=== PATIENT | female | born 1970 | race African-American/Black ===

== ENCOUNTER 2018-07-14 19:09 | Emergency (ER) | payer MEDICAID ==
[~2018-07-14] VITALS: Ht 157.5 cm; Wt 144.0 kg
[2018-07-14] MEDS ORDERED: SODIUM CHLORIDE 0.9% 1,000 ML IV ONE (19:45)
[2018-07-14 20:20] LABS: BASOPHILS % 0.7 % (0.0-2.0); EOSINOPHILS % 0.7 % (0.0-5.0); HEMATOCRIT. 39.6 % (36.0-48.0); HEMOGLOBIN. 12.8 g/dL (12.0-16.0); LYMPHOCYTES % 32.1 % (20.0-50.0); MEAN CORPUSCULAR VOLUME 89.4 fL (81.0-99.0); MEAN PLATELET VOLUME 7.8 fl (7.4-10.4); MONOCYTES % 6.2 % (2.0-8.0); NEUTROPHILS % 60.3 % (40.0-76.0); PLATELET 282 x1000/uL (130-400); RED BLOOD CELL COUNT 4.43 mill/uL (4.2-5.4); RED CELL DISTRIBUTION WIDTH 14.7 % (11.6-14.6)
[2018-07-14 20:23] LABS: CHLORIDE 107 mEq/L (98-107)
[2018-07-14 20:28] LABS: ETHANOL BLOOD < 10 mg/dL
[2018-07-14 21:10] LABS: COLOR URINE YELLOW (YELLOW); KETONES URINE NEGATIVE (NEGATIVE); LEUKOCYTE ESTERASE URINE NEGATIVE (NEGATIVE); NITRITE URINE NEGATIVE (NEGATIVE); OCCULT BLOOD URINE NEGATIVE (NEGATIVE); PH URINE 5.5 (4.5-8.0); PROTEIN URINE NEGATIVE (NEGATIVE); SPECIFIC GRAVITY URINE 1.022 (1.005-1.030); UROBILINOGEN URINE 0.2 E.U./dL (0.2-1.0)
[2018-07-14 21:15] LABS: CLARITY URINE CLEAR (CLEAR)
[2018-07-14 21:21] LABS: *AMPHETAMINES SCREEN URINE NEGATIVE (NEGATIVE); *BARBITURATES SCREEN URINE NEGATIVE (NEGATIVE); *BENZODIAZEPINES SCREEN URINE NEGATIVE (NEGATIVE)
[2018-07-14 21:22] LABS: *COCAINE SCREEN URINE NEGATIVE (NEGATIVE); CANNABINOID URINE SCREEN NEGATIVE (NEGATIVE); METHADONE URINE SCREEN NEGATIVE (NEGATIVE); OPIATES URINE SCREEN NEGATIVE (NEGATIVE); PHENCYCLIDINE URINE SCREEN NEGATIVE (NEGATIVE)
[2018-07-14 22:54] VITALS: BP 103/59
== END 2018-07-14 22:56 | disposition home or self-care (01) ==
LOC: ER 19:09
DX: E86.0 Dehydration (principal); R41.82 Altered mental status, unspecified; F32.9 Major depressive disorder, single episode, unspecified; E66.9 Obesity, unspecified; Z68.43 Body mass index [BMI] 50.0-59.9, adult; Z90.49 Acquired absence of other specified parts of digestive tract
CPT/HCPCS: 36415; 70450; 80053; 80305; 80320; 81003; 81025; 82140; 82962; 83605; 83690; 84443; 84484; 85025; 93005; 96360; 96361; 99284; J7030; G0480

== ENCOUNTER 2019-07-05 11:04 | Inpatient (IN) | payer MEDICAID ==
[~2019-07-05] VITALS: Ht 157.5 cm; Wt 142.5 kg
[2019-07-05] MEDS ORDERED: METHYLPREDNISOLONE SOD SUCC 125 MG/2 ML VIAL IV STA (11:58)
[2019-07-05] MEDS ORDERED: IPRATROPIUM BROMIDE (0.02%) 0.5MG/2.5ML NEB HHN STA (11:58)
[2019-07-05] MEDS ORDERED: ALBUTEROL (0.083%) 2.5MG/3ML NEB HHN STA (11:58)
[2019-07-05 12:07] LABS: BASOPHILS % 0.5 % (0.0-2.0); EOSINOPHILS % 0.4 % (0.0-5.0); HEMATOCRIT. 40.9 % (36.0-48.0); HEMOGLOBIN. 13.5 g/dL (12.0-16.0); LYMPHOCYTES % 12.6 % (20.0-50.0); MEAN CORPUSCULAR HEMOGLOBIN 28.8 pg (28.0-32.0); MEAN CORPUSCULAR VOLUME 87.3 fL (81.0-99.0); MEAN PLATELET VOLUME 8.8 fl (7.4-10.4); MONOCYTES % 4.8 % (2.0-8.0); NEUTROPHILS % 81.7 % (40.0-76.0); PLATELET 194 x1000/uL (130-400); RED BLOOD CELL COUNT 4.68 mill/uL (4.2-5.4)
[2019-07-05 12:14] LABS: CHLORIDE 101 mEq/L (98-107)
[2019-07-05 12:18] LABS: BG BASE EXCESS 1.8 mmol/L (-2.0-2.0); BG BILEVEL POS AIRWAY PRESSURE 15/5; BG CARBOXYHEMOGLOBIN 0.9 % (0.5-1.5); BG DEOXYHEMOGLOBIN 4.1 % (0.0-5.0); BG FRACTION INSPIRED OXYGEN 50; BG METHEMOGLOBIN 0.2 % (0.0-1.5); BG OXYGEN SATURATION 95.9 % (92.0-98.5); BG OXYHEMOGLOBIN 94.8 % (94.0-97.0); BG PH 7.366 (7.350-7.450); BG PO2 87.1 mmHg (75.0-100.0); BG SAMPLE SITE RIGHT RADIAL; BG TOTAL HEMOGLOBIN 13.9 g/dL (12.0-18.0); BG VENT MODE MASK - BIPAP; BG VENT RATE 16 set
[2019-07-05] MEDS ORDERED: ASPIRIN 81MG TABLET PO ONE (13:00)
[2019-07-05] MEDS ORDERED: NITROGLYCERIN 0.4MG TABLET SL SL PRN (13:00)
[2019-07-05] MEDS ORDERED: FUROSEMIDE 40MG/4ML VIAL IV ONE (13:00)
[2019-07-05] MEDS ORDERED: ACETAMINOPHEN 325MG TABLET PO PRN (13:30)
[2019-07-05] MEDS ORDERED: IPRATROPIUM/ALBUTEROL 0.5-3(2.5)MG/3ML NEB HHN PRN (13:30)
[2019-07-05] MEDS ORDERED: ONDANSETRON HCL 4MG/2ML INJ IV PRN (13:30)
[2019-07-05] MEDS: IPRATROPIUM/ALBUTEROL 0.5-3(2.5)MG/3ML NEB HHN SCH ×2 (16:46→20:28)
[2019-07-05 22:00] VITALS: BP 106/64
[2019-07-05 22:46] VITALS: BP 99/51
[2019-07-05] MEDS ORDERED: IOHEXOL-350 100 ML BOTTLE ONE (23:12)
[2019-07-06] VITALS (11 sets, daily range): BP systolic 100–133; BP diastolic 57–77
[2019-07-06] MEDS: IPRATROPIUM/ALBUTEROL 0.5-3(2.5)MG/3ML NEB HHN SCH ×6 (00:16→20:55)
[2019-07-06] MEDS: FUROSEMIDE 40MG/4ML VIAL IVP SCH ×2 (06:21→17:05)
[2019-07-06 06:44] LABS: BASOPHILS % 0.2 % (0.0-2.0); HEMATOCRIT. 38.1 % (36.0-48.0); HEMOGLOBIN. 12.6 g/dL (12.0-16.0); LYMPHOCYTES % 10.6 % (20.0-50.0); MEAN CORPUSCULAR HEMOGLOBIN 28.7 pg (28.0-32.0); MEAN CORPUSCULAR VOLUME 87.1 fL (81.0-99.0); MONOCYTES % 7.4 % (2.0-8.0); NEUTROPHILS % 81.8 % (40.0-76.0); PLATELET 190 x1000/uL (130-400); RED BLOOD CELL COUNT 4.38 mill/uL (4.2-5.4); RED CELL DISTRIBUTION WIDTH 16.1 % (11.6-14.6)
[2019-07-06 07:09] LABS: CHLORIDE 103 mEq/L (98-107)
[2019-07-06] MEDS ORDERED: FUROSEMIDE 40MG/4ML VIAL IVP SCH (09:00)
[2019-07-06] MEDS: ENOXAPARIN 40MG/0.4ML SYR SUBCUT SCH ×2 (09:56→21:28)
[2019-07-06] MEDS ORDERED: INFLUENZA VIRUS VACCINE(AFLURIA) 0.5ML SYR IM ONE (12:00)
[2019-07-06] MEDS ORDERED: PNEUMOCOCCAL 23-VAL P-SAC VAC 0.5 ML IM ONE (12:00)
[2019-07-06] MEDS: AZITHROMYCIN 500 MG in DEXT 5% WATER 250 ML IV SCH (14:50)
[2019-07-06] MEDS: CEFTRIAXONE 1 G PREMIX 50 ML IV SCH (16:02)
[2019-07-06 16:21] LABS: CANNABINOID URINE SCREEN NEGATIVE (NEGATIVE); PHENCYCLIDINE URINE SCREEN NEGATIVE (NEGATIVE)
[2019-07-06 16:22] LABS: *AMPHETAMINES SCREEN URINE NEGATIVE (NEGATIVE); *BARBITURATES SCREEN URINE NEGATIVE (NEGATIVE); *BENZODIAZEPINES SCREEN URINE NEGATIVE (NEGATIVE); *COCAINE SCREEN URINE NEGATIVE (NEGATIVE)
[2019-07-06 16:23] LABS: METHADONE URINE SCREEN NEGATIVE (NEGATIVE)
[2019-07-06 16:26] LABS: OPIATES URINE SCREEN NEGATIVE (NEGATIVE)
[2019-07-07] VITALS (12 sets, daily range): BP systolic 89–151; BP diastolic 52–82
[2019-07-07] MEDS: IPRATROPIUM/ALBUTEROL 0.5-3(2.5)MG/3ML NEB HHN SCH ×6 (01:38→21:18)
[2019-07-07 06:50] LABS: BASOPHILS % 0.2 % (0.0-2.0); HEMATOCRIT. 35.4 % (36.0-48.0); HEMOGLOBIN. 11.7 g/dL (12.0-16.0); LYMPHOCYTES % 22.8 % (20.0-50.0); MEAN CORPUSCULAR HEMOGLOBIN 28.9 pg (28.0-32.0); MEAN CORPUSCULAR VOLUME 87.1 fL (81.0-99.0); MEAN PLATELET VOLUME 8.7 fl (7.4-10.4); MONOCYTES % 8.1 % (2.0-8.0); NEUTROPHILS % 68.9 % (40.0-76.0); PLATELET 215 x1000/uL (130-400); RED BLOOD CELL COUNT 4.07 mill/uL (4.2-5.4); RED CELL DISTRIBUTION WIDTH 16.1 % (11.6-14.6)
[2019-07-07 07:06] LABS: CHLORIDE 102 mEq/L (98-107)
[2019-07-07 07:14] LABS: LDL CHOLESTEROL 79 mg/dL (5-100)
[2019-07-07 07:16] LABS: HDL CHOLESTEROL 34 mg/dL (40-59)
[2019-07-07] MEDS: FUROSEMIDE 40MG/4ML VIAL IVP SCH ×2 (09:29→17:31)
[2019-07-07] MEDS: ENOXAPARIN 40MG/0.4ML SYR SUBCUT SCH ×2 (09:30→20:58)
[2019-07-07] MEDS ORDERED: FUROSEMIDE 40MG/4ML VIAL IVP SCH (13:00)
[2019-07-07] MEDS: AZITHROMYCIN 500 MG in DEXT 5% WATER 250 ML IV SCH (13:07)
[2019-07-07] MEDS: CEFTRIAXONE 1 G PREMIX 50 ML IV SCH (14:35)
[2019-07-07] MEDS: BUDESONIDE 0.5MG/2ML NEB HHN SCH (21:18)
[2019-07-08] VITALS (12 sets, daily range): BP systolic 81–120; BP diastolic 43–84
[2019-07-08] MEDS: IPRATROPIUM/ALBUTEROL 0.5-3(2.5)MG/3ML NEB HHN SCH ×7 (00:16→23:56)
[2019-07-08] MEDS: FUROSEMIDE 40MG/4ML VIAL IVP SCH ×2 (06:28→17:53)
[2019-07-08 07:03] LABS: BASOPHILS % 0.2 % (0.0-2.0); EOSINOPHILS % 0.3 % (0.0-5.0); HEMATOCRIT. 36.8 % (36.0-48.0); HEMOGLOBIN. 12.1 g/dL (12.0-16.0); MEAN CORPUSCULAR HEMOGLOBIN 28.8 pg (28.0-32.0); MEAN CORPUSCULAR VOLUME 87.2 fL (81.0-99.0); MEAN PLATELET VOLUME 8.2 fl (7.4-10.4); MONOCYTES % 8.1 % (2.0-8.0); NEUTROPHILS % 68.4 % (40.0-76.0); PLATELET 212 x1000/uL (130-400); RED BLOOD CELL COUNT 4.22 mill/uL (4.2-5.4); RED CELL DISTRIBUTION WIDTH 15.6 % (11.6-14.6)
[2019-07-08 07:45] LABS: CHLORIDE 99 mEq/L (98-107)
[2019-07-08] MEDS: ENOXAPARIN 40MG/0.4ML SYR SUBCUT SCH ×2 (08:14→20:10)
[2019-07-08] MEDS: BUDESONIDE 0.5MG/2ML NEB HHN SCH (09:10)
[2019-07-08] MEDS ORDERED: POTASSIUM CHLORIDE 20MEQ TABLET SR PO NR (12:00)
[2019-07-08] MEDS: AZITHROMYCIN 500 MG in DEXT 5% WATER 250 ML IV SCH (12:38)
[2019-07-08] MEDS: CEFTRIAXONE 1 G PREMIX 50 ML IV SCH (14:07)
[2019-07-09] VITALS (13 sets, daily range): BP systolic 91–142; BP diastolic 44–86
[2019-07-09] MEDS: IPRATROPIUM/ALBUTEROL 0.5-3(2.5)MG/3ML NEB HHN SCH ×5 (04:13→20:03)
[2019-07-09] MEDS: BUDESONIDE 0.5MG/2ML NEB HHN SCH ×2 (09:12→20:03)
[2019-07-09] MEDS: FUROSEMIDE 40MG/4ML VIAL IVP SCH ×2 (09:22→17:04)
[2019-07-09] MEDS: ENOXAPARIN 40MG/0.4ML SYR SUBCUT SCH ×2 (09:25→20:53)
[2019-07-09 09:39] LABS: CHLORIDE 97 mEq/L (98-107)
[2019-07-09] MEDS: AZITHROMYCIN 500 MG in DEXT 5% WATER 250 ML IV SCH (13:05)
[2019-07-09] MEDS: CEFTRIAXONE 1 G PREMIX 50 ML IV SCH (14:26)
[2019-07-09 15:57] LABS: BG BASE EXCESS 12.2 mmol/L (-2.0-2.0); BG CARBOXYHEMOGLOBIN 0.7 % (0.5-1.5); BG DEOXYHEMOGLOBIN 6.9 % (0.0-5.0); BG FRACTION INSPIRED OXYGEN 36; BG METHEMOGLOBIN 0.2 % (0.0-1.5); BG OXYHEMOGLOBIN 92.2 % (94.0-97.0); BG PCO2 53.6 mmHg (35.0-45.0); BG PH 7.468 (7.350-7.450); BG PO2 63.3 mmHg (75.0-100.0); BG SAMPLE SITE RIGHT RADIAL; BG TOTAL HEMOGLOBIN 13.2 g/dL (12.0-18.0); BG VENT MODE NASAL CANNULA
[2019-07-10] VITALS (11 sets, daily range): BP systolic 100–130; BP diastolic 48–76
[2019-07-10] MEDS: IPRATROPIUM/ALBUTEROL 0.5-3(2.5)MG/3ML NEB HHN SCH ×6 (00:12→20:32)
[2019-07-10 06:33] LABS: CHLORIDE 97 mEq/L (98-107)
[2019-07-10 08:19] LABS: BG BASE EXCESS 11.5 mmol/L (-2.0-2.0); BG DEOXYHEMOGLOBIN 4.1 % (0.0-5.0); BG FRACTION INSPIRED OXYGEN 36; BG HCO3 ACT 36.5 mmol/L (22.0-26.0); BG METHEMOGLOBIN 0.3 % (0.0-1.5); BG OXYGEN SATURATION 95.8 % (92.0-98.5); BG OXYHEMOGLOBIN 94.6 % (94.0-97.0); BG PCO2 48.3 mmHg (35.0-45.0); BG PH 7.496 (7.350-7.450); BG PO2 75.6 mmHg (75.0-100.0); BG SAMPLE SITE RIGHT RADIAL; BG VENT MODE NASAL CANNULA
[2019-07-10] MEDS: BUDESONIDE 0.5MG/2ML NEB HHN SCH ×2 (08:26→20:30)
[2019-07-10] MEDS: ENOXAPARIN 40MG/0.4ML SYR SUBCUT SCH ×2 (08:36→20:33)
[2019-07-10] MEDS ORDERED: POTASSIUM CHLORIDE 20MEQ TABLET SR PO NR (10:15)
[2019-07-10] MEDS: FUROSEMIDE 40MG/4ML VIAL IVP SCH ×2 (10:48→18:14)
[2019-07-10] MEDS: AZITHROMYCIN 500 MG in DEXT 5% WATER 250 ML IV SCH (12:33)
[2019-07-10 13:04] LABS: BG BASE EXCESS 9.8 mmol/L (-2.0-2.0); BG CARBOXYHEMOGLOBIN 0.9 % (0.5-1.5); BG DEOXYHEMOGLOBIN 14.4 % (0.0-5.0); BG FRACTION INSPIRED OXYGEN 21; BG HCO3 ACT 35.1 mmol/L (22.0-26.0); BG METHEMOGLOBIN 0.1 % (0.0-1.5); BG OXYGEN SATURATION 85.5 % (92.0-98.5); BG OXYHEMOGLOBIN 84.6 % (94.0-97.0); BG PCO2 49.8 mmHg (35.0-45.0); BG PH 7.466 (7.350-7.450); BG PO2 48.6 mmHg (75.0-100.0); BG SAMPLE SITE RIGHT RADIAL; BG TOTAL HEMOGLOBIN 13.7 g/dL (12.0-18.0); BG VENT MODE ROOM AIR
[2019-07-10] MEDS: CEFTRIAXONE 1 G PREMIX 50 ML IV SCH (14:20)
[2019-07-11] VITALS (12 sets, daily range): BP systolic 103–139; BP diastolic 55–88
[2019-07-11] MEDS: IPRATROPIUM/ALBUTEROL 0.5-3(2.5)MG/3ML NEB HHN SCH ×7 (00:16→23:45)
[2019-07-11] MEDS: AZITHROMYCIN 500 MG TABLET PO SCH (09:06)
[2019-07-11] MEDS: ENOXAPARIN 40MG/0.4ML SYR SUBCUT SCH ×2 (09:06→21:10)
[2019-07-11 11:16] LABS: CHLORIDE 96 mEq/L (98-107)
[2019-07-11] MEDS: CEFTRIAXONE 1 G PREMIX 50 ML IV SCH (15:45)
[2019-07-11] MEDS: FUROSEMIDE 40MG TABLET PO SCH (15:46)
[2019-07-11] MEDS: POTASSIUM CHLORIDE 20MEQ TABLET SR PO SCH (15:46)
[2019-07-12] VITALS (8 sets, daily range): BP systolic 90–115; BP diastolic 49–74
[2019-07-12] MEDS: IPRATROPIUM/ALBUTEROL 0.5-3(2.5)MG/3ML NEB HHN SCH ×3 (03:47→12:50)
[2019-07-12] MEDS ORDERED: POTASSIUM CHLORIDE 20MEQ TABLET SR PO SCH (09:00)
[2019-07-12] MEDS ORDERED: FUROSEMIDE 40MG TABLET PO SCH (09:00)
[2019-07-12] MEDS: AZITHROMYCIN 500 MG TABLET PO SCH (09:46)
[2019-07-12] MEDS: FUROSEMIDE 40MG TABLET PO SCH (09:46)
[2019-07-12] MEDS: POTASSIUM CHLORIDE 20MEQ TABLET SR PO SCH (09:47)
[2019-07-12] MEDS: ENOXAPARIN 40MG/0.4ML SYR SUBCUT SCH (09:51)
[2019-07-12] MEDS ORDERED: NYSTATIN POWDER 15GM TOP SCH (13:00)
[2019-07-12] MEDS ORDERED: FLUT1DIS3 INH (13:04)
[2019-07-12] MEDS ORDERED: FURO-151 MT (13:04)
[2019-07-12] MEDS ORDERED: ALBU18HF2 IH (13:04)
[2019-07-12] MEDS ORDERED: POTA-79 MT (13:04)
[2019-07-12] MEDS: CEFTRIAXONE 1 G PREMIX 50 ML IV SCH (13:21)
== END 2019-07-12 14:10 | disposition home or self-care (01) | DRG 133 ==
LOC: ER 11:04 → EDBEDREQSVC 13:12 → EDBEDREQ 13:12 → EDBEDREQTM 13:12 → ENRESERV 21:01 → 3WST 22:33
PROVIDERS: ADMIT Internal Medicine; ATTEND Internal Medicine
PROC: 5A09357 Assistance with Respiratory Ventilation, Less than 24 Consecutive Hours, Continuous Positive Airway Pressure (ICD-10-PCS; principal; 2019-07-05)
PROC: 5A09357 Assistance with Respiratory Ventilation, Less than 24 Consecutive Hours, Continuous Positive Airway Pressure (ICD-10-PCS; 2019-07-06)
PROC: 5A09357 Assistance with Respiratory Ventilation, Less than 24 Consecutive Hours, Continuous Positive Airway Pressure (ICD-10-PCS; 2019-07-07)
PROC: 5A09357 Assistance with Respiratory Ventilation, Less than 24 Consecutive Hours, Continuous Positive Airway Pressure (ICD-10-PCS; 2019-07-08)
PROC: 5A09357 Assistance with Respiratory Ventilation, Less than 24 Consecutive Hours, Continuous Positive Airway Pressure (ICD-10-PCS; 2019-07-10)
PROC: 5A09357 Assistance with Respiratory Ventilation, Less than 24 Consecutive Hours, Continuous Positive Airway Pressure (ICD-10-PCS; 2019-07-11)
DX: J96.01 Acute respiratory failure with hypoxia (principal); R65.11 Systemic inflammatory response syndrome (SIRS) of non-infectious origin with acute organ dysfunction; I50.33 Acute on chronic diastolic (congestive) heart failure; J18.9 Pneumonia, unspecified organism; I27.20 Pulmonary hypertension, unspecified; E87.2 Acidosis; E44.1 Mild protein-calorie malnutrition; E66.2 Morbid (severe) obesity with alveolar hypoventilation; I11.0 Hypertensive heart disease with heart failure; J96.02 Acute respiratory failure with hypercapnia; J44.0 Chronic obstructive pulmonary disease with (acute) lower respiratory infection; J44.1 Chronic obstructive pulmonary disease with (acute) exacerbation; J45.901 Unspecified asthma with (acute) exacerbation; K76.0 Fatty (change of) liver, not elsewhere classified; F32.9 Major depressive disorder, single episode, unspecified; E11.9 Type 2 diabetes mellitus without complications; E87.6 Hypokalemia; T50.2X5A Adverse effect of carbonic-anhydrase inhibitors, benzothiadiazides and other diuretics, initial encounter; E78.5 Hyperlipidemia, unspecified; F17.210 Nicotine dependence, cigarettes, uncomplicated; R04.2 Hemoptysis; F41.9 Anxiety disorder, unspecified; Z83.3 Family history of diabetes mellitus; Z90.49 Acquired absence of other specified parts of digestive tract; Z68.43 Body mass index [BMI] 50.0-59.9, adult; Z71.89 Other specified counseling
CPT/HCPCS: 36415; 36600; 71045; 71275; 80048; 80053; 80061; 80305; 82375; 82805; 83036; 83880; 84145; 84443; 84484; 85025; 90686; 90732; 93005; 93306; 93970; 94640; 94660; 99291; J0456; J0696; J1650; J1940; J2930; J7060; J7626; Q9967